=== PATIENT | female | born 1960 | race Caucasian/White ===

== ENCOUNTER 2019-07-22 11:24 | Outpatient (CLI) | payer OTHER, SELFPAY ==
--- NOTE | 2019-07-22 11:55 | XR_ITS ---
WS: [id number] CERVICAL SPINE 3 VIEWS HISTORY: NECK PAIN COMPARISON: None available. Less than 2 mm retrolisthesis of C3. Moderate disc space narrowing and osteophytosis. No fractures. C 1 and C2 are aligned. Odontoid is intact. Soft tissues are normal. XR/XR cervical spine 3V* [id number] IMPRESSION: Moderate multilevel spondylosis. Most significant degenerative changes at C6-7.
--- NOTE | 2019-07-22 11:55 | XR_ITS ---
WS: [id number] RIGHT HAND: 3 VIEW(S) TECHNIQUE: PA, oblique and lateral. HISTORY: OSTEOARTHRITIS BOTH HANDS/HAND PAIN COMPARISON: None available. Advanced degenerative changes at the interphalangeal joints, greatest involving the second, third and fourth DIP joints from osteoarthritis. No osteopenia. Mild soft tissue edema surrounding the fingers . XR/XR hand RT min 3V* [id number] IMPRESSION: Moderate osteoarthritis involving the DIP joints as above.
== END 2019-07-22 11:25 | disposition home or self-care (01) ==
LOC: RAD 11:25
PROVIDERS: Visit Provider Dermatology
DX: M19.042 Primary osteoarthritis, left hand (principal); M19.041 Primary osteoarthritis, right hand; M47.892 Other spondylosis, cervical region; M79.642 Pain in left hand; M79.641 Pain in right hand; M54.2 Cervicalgia
CPT/HCPCS: 72040; 73130